=== PATIENT | male | born 1980 | race Caucasian/White ===

== ENCOUNTER 2021-11-16 05:40 | Emergency (ER) | payer SELFPAY ==
[2021-11-16 05:43] VITALS: PULSE 123; RESP 24; TEMP 36.4; O2SAT 100; BMI 32.5
[2021-11-16 06:08] VITALS: BP 95/54; PULSE 109; RESP 19; O2SAT 98
[2021-11-16 06:18] LABS: Basophils # 0.1 10^3/uL (0.0-0.1); Basophils % 0.2 %; Eosinophils # 0.1 10^3/uL (0.0-0.8); Eosinophils % 0.4 %; Hematocrit 25.4 % (42.0-52.0); Hemoglobin 8.1 g/dL (11.7-16.6); Lymphocytes # 2.8 10^3/uL (0.8-4.8); Lymphocytes % 11.1 %; Mean Corpuscular HGB Conc 31.9 g/dL (30.0-36.0); Mean Corpuscular Hemoglobin 26.7 pg (28.0-34.0); Mean Corpuscular Volume 83.8 fl (80-94); Mean Platelet Volume 10.7 fL (7.4-10.4); Monocytes # 1.9 10^3/uL (0.2-0.9); Monocytes % 7.6 %; Neutrophils # 19.52 10^3/uL (1.8-7.7); Neutrophils % 78.5 %; Nucleated Red Blood Cells % 0 %; Platelet Count 288 10^3/cmm (130-400); Red Blood Count 3.03 10^6/uL (4.1-5.3); Red Cell Distribution Width 15.3 % (12.1-15.1); White Blood Count 24.9 10^3/uL (4.0-10.0)
[2021-11-16 06:30] LABS: INR 1.03 (0.8-1.2); Partial Thromboplastin Time 21.2 SECONDS (23.9-36.7)
[2021-11-16 06:35] LABS: Lactic Sepsis W/Reflex 3.6 mmol/L (0.5-2.2)
--- NOTE | 2021-11-16 06:40 | CTR_ITS ---
PROCEDURE INFORMATION: Exam: CT Abdomen And Pelvis With Contrast Exam date and time: 11/16/2021 6:56 AM Age: 41 years old Clinical indication: Nausea and vomiting; Abdominal pain; Localized; Lower; Additional info: Abd pain TECHNIQUE: Imaging protocol: Computed tomography of the abdomen and pelvis with contrast. Radiation optimization: All CT scans at this facility use at least one of these dose optimization techniques: automated exposure control; mA and/or kV adjustment per patient size (includes targeted exams where dose is matched to clinical indication); or iterative reconstruction. Contrast material: OMNI 300; Contrast volume: 95 ml; Contrast route: INTRAVENOUS (IV); COMPARISON: No relevant prior studies available. RADIATION DOSE METRICS: Total DLP (mGy-cm): 1945.21 FINDINGS: Lower thorax: Moderate wall thickening of the inferior esophagus, which is a nonspecific indicator of inflammation. Small hiatal hernia, which contains a small portion of the proximal stomach. Liver: Unremarkable. Gallbladder and bile ducts: Unremarkable. Pancreas: Unremarkable. Spleen: Unremarkable. Adrenal glands: Unremarkable. Kidneys and ureters: The kidneys are unremarkable. No renal stones identified. No hydronephrosis on either side. Stomach and bowel: No bowel obstruction identified. No diverticulitis identified. Appendix: A normal-appearing appendix is seen in the right lower quadrant. Intraperitoneal space: No free intraperitoneal air identified. No free intraperitoneal fluid identified. Vasculature: No abdominal aortic aneurysm. Lymph nodes: Unremarkable. Urinary bladder: Unremarkable as visualized. Reproductive: Unremarkable as visualized. Bones/joints: Mild degenerative changes of the lower thoracic spine. Soft tissues: Unremarkable. CT/CT abdomen pelvis w con* [id number] IMPRESSION: 1. Moderate wall thickening of the inferior esophagus, which is a nonspecific indicator of inflammation. 2. Small hiatal hernia, which contains a small portion of the proximal stomach.
[2021-11-16 06:46] LABS: Alanine Aminotransferase 27 U/L (0-41); Albumin Level 3.5 g/dL (3.5-5.2); Alkaline Phosphatase 95 IU/L (40-130); Anion Gap 15.1 (5-19); Aspartate Amino Transferase 14 U/L (0-40); Blood Urea Nitrogen 35 mg/dL (6-20); Calcium 8.4 mg/dL (8.5-10.5); Carbon Dioxide 23 mmol/L (22-29); Chloride 102 mmol/L (98-107); Globulin 1.8 g/dL (1.3-4.6); Glomerular Filtration Rate 93.5 mL/min (90-130); Glucose 248 mg/dL (65-115); Magnesium 1.8 mg/dL (1.7-2.3); Osmolality Calculated 298 mOsm/kg (285-295); Potassium 4.1 mmol/L (3.5-5.1); Sodium 136 mmol/L (136-145); Total Bilirubin 0.2 mg/dL (0.15-1.2); Total Protein 5.3 g/dL (6.6-8.7)
[2021-11-16] MEDS: iohexol 300 mg/mL 100 mL Btl IV (06:56)
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
[2021-11-16 07:12] VITALS: RESP 16; O2SAT 99
[2021-11-16] MEDS: morphine 4 mg/mL SDV 1 mL IVP (07:12)
[2021-11-16] MEDS: pantoprazole 40 mg SDV 80 MG IVP (07:14)
[2021-11-16] MEDS: ondansetron 2 mg/ML SDV 2 mL 4 MG IVP (07:14)
[2021-11-16 08:00] VITALS: BP 91/49; PULSE 88; RESP 14; O2SAT 95
[2021-11-16 08:02] LABS: Reflex Lactate Order REFLEX LACTIC ORDERD
[2021-11-16] MEDS: sodium chloride 0.9% 1,000 ML 999 ML IV ×2 (08:13→08:15)
[2021-11-16 09:00] VITALS: BP 89/53; PULSE 102; RESP 18; O2SAT 99
[2021-11-16 09:16] LABS: Lactic Acid level (Lactate) 1.8 mmol/L (0.5-2.2)
[2021-11-16 09:22] LABS: Ketone (Acetest) Serum Negative (Negative)
[2021-11-16 09:28] LABS: Add Urine Microscopic? NO; Charge for UA Resulting for Rev
[2021-11-16 09:29] LABS: Lipase 29 U/L (13-60)
[2021-11-16 09:34] LABS: Bilirubin Urine Neg (Negative); Blood Urine Neg (Negative); Glucose Urine UA 1+ (Normal); Ketones Urine Negative (Negative); Leukocyte Esterase Urine Negative (Negative); Nitrate Urine Negative (Negative); Protein Urine Neg (Negative); Urine Appearance Clear (CLEAR); Urine Color Yellow (Yellow); Urobilinogen Urine Norm (Negative); pH Urine 7 (5-7)
--- NOTE | 2021-11-16 09:40 | PC.NURSE ---
report given to lAfred at [facility], all transfer paperwork given to IDA Ware, transportation enroute
[2021-11-16 11:00] VITALS: BP 103/52
== END 2021-11-16 11:20 | disposition short-term general hospital (02) ==
PROVIDERS: Emergency Provider Family Medicine
DX: K51.90 Ulcerative colitis, unspecified, without complications (principal); K92.2 Gastrointestinal hemorrhage, unspecified; D62 Acute posthemorrhagic anemia
CPT/HCPCS: 74177; 80053; 81003; 82009; 83605; 83690; 83735; 85025; 85610; 85730; 86850; 86900; 96361; 96374; 96375; 99285; C9113; J2270; J2405; J7030; Q9967